=== PATIENT | male | born 1965 | race Caucasian/White ===

== ENCOUNTER 2020-03-14 05:47 | Inpatient (IN) ==
[2020-03-14 06:23] LABS: Basophils % 0.3 %; Eosinophils % 0.2 %; Hematocrit 45.5 % (37.5-50.1); Immature Granulocytes % 0.2 % (0-4); Lymphocytes # 1.6 K/mcL (0.6-4.6); Lymphocytes % 12.1 %; Mean Corpuscular Hemoglobin 29.1 pg (28.0-33.3); Mean Corpuscular Volume 88.2 fL (83.0-100.0); Mean Platelet Volume 8.9 fL (9.4-12.4); Neutrophils # 10.1 K/mcL (1.6-8.9); Platelet Count 426 K/mcL (140-400); Red Blood Count 5.16 M/mcL (4.19-5.50); Red Cell Distribution Width 13.6 % (11.5-14.5); Segmented Neutrophils % 79.2 %; White Blood Count 12.8 K/mcL (4.3-11.1)
[2020-03-14 06:44] LABS: Acetaminophen < 10 mcg/mL (10-20); BUN/Creatinine Ratio 9 (6-26); Blood Urea Nitrogen 10 mg/dL (6-20); Calcium 9.9 mg/dL (8.6-10.3); Carbon Dioxide 29 mEq/L (23-29); Chloride 103 mEq/L (98-107); Ethanol < 10 mg/dL (Less than 10); Glucose 121 mg/dL (70-105); Osmolality,Calculated 288 (280-300); Salicylate < 2.5 mg/dL (15.0-30.0); Sodium 139 mEq/L (136-145); eGFR For African Americans > 60 (> 60); eGFR For Non-African Americans > 60 (> 60)
[2020-03-14 07:15] LABS: Bilirubin,Urine Negative (Negative); Blood,Urine Negative (Negative); Clarity,Urine Clear (Clear); Color,Urine Yellow (Yellow); Glucose,Urine (UA) Normal (Normal); Ketones,Urine Negative (Negative); Leukocyte Esterase,Urine Negative (Negative); Nitrite,Urine Negative (Negative); Protein,Urine Negative (Neg-Trace); Specific Gravity,Urine 1.014 (1.010-1.025); Urobilinogen,Urine Normal (Normal)
[2020-03-14 07:56] LABS: Amphetamine Screen,Urine Negative ng/mL (Cutoff=1000); Barbiturate Screen,Urine Negative ng/mL (Cutoff=200); Benzodiazepines Screen,Urine Negative ng/mL (Cutoff=200); Cannabinoid Screen,Urine Positive ng/mL (Cutoff = 50); Cocaine Screen,Urine Negative ng/mL (Cutoff= 300); Opiate Screen,Urine Negative ng/mL (Cutoff=300); Phencyclidine Screen,Urine Negative ng/mL (Cutoff=25)
[2020-03-14] MEDS ORDERED: Acetaminophen 325 MG TABLET PO PRN (10:02)
[2020-03-14] MEDS ORDERED: haloperidoL 5 MG TABLET PO PRN (10:02)
[2020-03-14] MEDS ORDERED: MOM Conc 10 ML UD.LIQ PO PRN (10:02)
[2020-03-14] MEDS ORDERED: *HR* LORazepam 2 MG/ML VIAL IM PRN (10:02)
[2020-03-14] MEDS ORDERED: *HR* LORazepam 1 MG TABLET PO PRN (10:02)
[2020-03-14] MEDS ORDERED: Haloperidol Lactate 5 MG/ML VIAL IM PRN (10:02)
[2020-03-14] MEDS: hydrOXYzine pamoate 25 MG CAPSULE PO PRN ×2 (12:10→20:46)
[2020-03-14] MEDS: Nicotine 21 MG PATCH.TD24 TD SCH (12:11)
[2020-03-14] MEDS: traZODone 50 MG TABLET PO PRN (20:46)
[2020-03-15] MEDS ORDERED: Nicotine 21 MG PATCH.TD24 TD SCH (09:00)
[2020-03-15] MEDS: Nicotine 21 MG PATCH.TD24 TD SCH (09:14)
[2020-03-15] MEDS: hydrOXYzine pamoate 25 MG CAPSULE PO PRN ×2 (09:16→20:26)
[2020-03-15 09:37] LABS: Chol/HDL Ratio 5.6 (0-4.9)
[2020-03-15] MEDS: ARIPiprazole 5 MG TABLET PO SCH (11:37)
[2020-03-15 13:20] LABS: Estimated Average Glucose 126 mg/dl
[2020-03-15] MEDS ORDERED: ChlorproMAZINE 25 MG/ML AMPUL IM PRN (13:49)
[2020-03-15] MEDS: traZODone 50 MG TABLET PO PRN (20:26)
[2020-03-15] MEDS ORDERED: ARIPiprazole 5 MG TABLET PO SCH (21:00)
[2020-03-16] MEDS: ARIPiprazole 5 MG TABLET PO SCH (09:19)
[2020-03-16] MEDS: Nicotine 21 MG PATCH.TD24 TD SCH (09:19)
[2020-03-16] MEDS: traZODone 50 MG TABLET PO PRN (20:33)
[2020-03-16] MEDS: hydrOXYzine pamoate 25 MG CAPSULE PO PRN (20:33)
[2020-03-17] MEDS: ARIPiprazole 5 MG TABLET PO SCH (08:45)
[2020-03-17] MEDS: Nicotine 21 MG PATCH.TD24 TD SCH (08:46)
[2020-03-17 09:09] VITALS: BP 106/74
== END 2020-03-17 10:10 | disposition home or self-care (01) | DRG 885 ==
LOC: EMEROOARM 05:47 → SUATTDRO 09:07 → INTOOBSV 09:07 → 1ANU 09:07
PROVIDERS: ADMIT Psychiatry & Neurology Psychiatry; ATTEND Psychiatry & Neurology Psychiatry